=== PATIENT | female | born 1955 | race Two or more races ===

== ENCOUNTER 2019-02-22 18:07 | Inpatient (IN) | payer OTHER ==
[2019-02-22] MEDS ORDERED: ONDANSETRON 4 MG INJ IV (20:00)
[2019-02-22] MEDS ORDERED: NACL 0.9% 3 ML SYG IV (20:00)
[2019-02-22] MEDS ORDERED: ACETAMINOPHEN 325 MG TAB PO (20:00)
[2019-02-22] MEDS ORDERED: BISACODYL (EC) 5 MG TAB PO (20:00)
[2019-02-22] MEDS ORDERED: hydrALAzine 20 MG INJ IV (20:00)
[2019-02-22] MEDS ORDERED: DOCUSATE SODIUM 100 MG CAP PO (20:00)
[2019-02-22] MEDS ORDERED: morphine 2 MG INJ IV (20:00)
[2019-02-22 20:19] LABS: ADD MAN DIFF? NO
[2019-02-22 20:24] LABS: BASOPHIL # 0.1 10^3/ul (0.0-0.1); BASOPHILS % 0.8 % (0.0-2.0); EOSINOPHILS # 0.1 10^3/ul (0.0-0.5); EOSINOPHILS % 2.1 % (0.0-7.0); HEMATOCRIT 41.4 % (37.0-47.0); HEMOGLOBIN 13.9 g/dl (12.0-16.0); LYMPHOCYTES # 1.4 10^3/ul (0.8-2.9); LYMPHOCYTES % 20.5 % (15.0-51.0); MEAN CORPUSCULAR HGB CONC 33.6 g/dl (32.0-37.0); MEAN CORPUSCULAR VOLUME 95.2 fl (82.0-101.0); MEAN PLATELET VOLUME 11.1 fl (7.4-10.4); MONOCYTE # 0.7 10^3/ul (0.3-0.9); MONOCYTES % 11.3 % (0.0-11.0); NEUTROPHIL # 4.3 10^3/ul (1.6-7.5); NUCLEATED RED BLOOD CELLS% 0.3 /100WBC (0.0-0.0); PLATELET COUNT 130 10^3/UL (140-415); RED BLOOD COUNT 4.35 10^6/ul (4.20-5.40); RED CELL DISTRIBUTION WIDTH 14.1 % (11.5-14.5)
[2019-02-22 20:24] LABS: WHITE BLOOD COUNT 6.6 10^3/ul (4.8-10.8)
[2019-02-22 20:44] LABS: ALANINE AMINOTRANSFERASE 33 IU/L (13-69); ALBUMIN 3.8 g/dl (3.3-4.9); ALBUMIN/GLOBULIN RATIO 1.05; ALKALINE PHOSPHATASE 78 IU/L (42-121); ANION GAP 12 (5-13); ASPARTATE AMINO TRANSFERASE 41 IU/L (15-46); BILIRUBIN,INDIRECT 1.2 mg/dl (0-1.1); BILIRUBIN,TOTAL 1.2 mg/dl (0.2-1.3); BLOOD UREA NITROGEN 16 mg/dl (7-20); CALCIUM 9.7 mg/dl (8.4-10.2); CARBON DIOXIDE 22 mmol/L (21-31); CHLORIDE 106 mmol/L (97-110); CREATINE KINASE 66 IU/L (23-200); CREATININE 0.79 mg/dl (0.44-1.00); Estimated GFR > 60 mL/min (>60); GLUCOSE 140 mg/dl (70-220); SODIUM 140 mmol/L (135-144); TOTAL PROTEIN 7.4 g/dl (6.1-8.1)
[2019-02-22 20:44] LABS: ETHANOL < 10.0 mg/dl (0-0)
[2019-02-22 20:55] LABS: B-TYPE NATRIURETIC PEPTIDE 12500 PG/ML (0-125); CK INDEX 1.9; CK-MB 1.27 ng/ml (0.0-2.4); TROPONIN-I 0.029 ng/ml (0.000-0.120)
[2019-02-22] MEDS: LISINOPRIL 5 MG TAB PO (23:03)
[2019-02-22] MEDS: FUROSEMIDE 40 MG INJ IV (23:03)
[2019-02-22] MEDS: HEPARIN 5,000 UNIT/1 ML VIAL SC (23:16)
[2019-02-22 23:26] LABS: AMPHETAMINE/METHAMPHETAMINE Negative (NEGATIVE); BARBITURATES Negative (NEGATIVE); BENZODIAZEPINES Negative (NEGATIVE); CANNABINOIDS Negative (NEGATIVE); COCAINE Negative (NEGATIVE); OPIATES Negative (NEGATIVE)
[2019-02-22] MEDS ORDERED: ENALAPRILAT 1.25 MG INJ IV (23:30)
[2019-02-22] MEDS ORDERED: LORAZEPAM 2 MG INJ IV (23:30)
[2019-02-23] MEDS: ZOLPIDEM 5 MG TAB PO ×2 (00:22→22:34)
[2019-02-23 03:34] LABS: CREATINE KINASE 58 IU/L (23-200)
[2019-02-23 03:46] LABS: CK INDEX 2.2
[2019-02-23 04:03] LABS: CK-MB 1.28 ng/ml (0.0-2.4)
[2019-02-23 05:59] LABS: ADD MAN DIFF? NO
[2019-02-23] MEDS: CIPROFLOXACIN 250 MG TAB NGT ×2 (06:00→17:42)
[2019-02-23 06:09] LABS: BASOPHIL # 0.1 10^3/ul (0.0-0.1); BASOPHILS % 1.1 % (0.0-2.0); EOSINOPHILS # 0.1 10^3/ul (0.0-0.5); EOSINOPHILS % 1.6 % (0.0-7.0); HEMATOCRIT 37.4 % (37.0-47.0); HEMOGLOBIN 13.1 g/dl (12.0-16.0); LYMPHOCYTES # 1.4 10^3/ul (0.8-2.9); LYMPHOCYTES % 24.6 % (15.0-51.0); MEAN CORPUSCULAR HEMOGLOBIN 34.6 pg (29.0-33.0); MEAN CORPUSCULAR VOLUME 98.7 fl (82.0-101.0); MEAN PLATELET VOLUME 11.5 fl (7.4-10.4); MONOCYTE # 0.6 10^3/ul (0.3-0.9); NEUTROPHIL # 3.5 10^3/ul (1.6-7.5); NEUTROPHILS % 62.3 % (39.0-77.0); PLATELET COUNT 118 10^3/UL (140-415); RED BLOOD COUNT 3.79 10^6/ul (4.20-5.40); RED CELL DISTRIBUTION WIDTH 15.9 % (11.5-14.5)
[2019-02-23 06:09] LABS: WHITE BLOOD COUNT 5.6 10^3/ul (4.8-10.8)
[2019-02-23] MEDS: FUROSEMIDE 40 MG INJ IV ×2 (06:12→17:43)
[2019-02-23] MEDS: HEPARIN 5,000 UNIT/1 ML VIAL SC ×3 (06:21→21:08)
[2019-02-23 06:25] LABS: ALANINE AMINOTRANSFERASE 32 IU/L (13-69); ALBUMIN 3.4 g/dl (3.3-4.9); ALBUMIN/GLOBULIN RATIO 1.06; ALKALINE PHOSPHATASE 69 IU/L (42-121); ANION GAP 12 (5-13); ASPARTATE AMINO TRANSFERASE 35 IU/L (15-46); BILIRUBIN,INDIRECT 1.4 mg/dl (0-1.1); BILIRUBIN,TOTAL 1.4 mg/dl (0.2-1.3); BLOOD UREA NITROGEN 15 mg/dl (7-20); CALCIUM 9.1 mg/dl (8.4-10.2); CARBON DIOXIDE 25 mmol/L (21-31); CHLORIDE 106 mmol/L (97-110); CHOL/HDL RATIO 3.9 RATIO; CHOLESTEROL 126 mg/dl (100-200); CREATININE 0.74 mg/dl (0.44-1.00); Estimated GFR > 60 mL/min (>60); GLUCOSE 122 mg/dl (70-220); HDL CHOLESTEROL 32 mg/dl (35-98); LDL CHOLESTEROL,CALCULATED 80 mg/dl; MAGNESIUM 1.9 mg/dl (1.7-2.5); POTASSIUM 3.5 mmol/L (3.5-5.1); SODIUM 143 mmol/L (135-144); TOTAL PROTEIN 6.6 g/dl (6.1-8.1); TRIGLYCERIDES 72 mg/dl (0-149)
[2019-02-23 08:04] LABS: HEMOGLOBIN A1C 6.1 % (0-5.9)
[2019-02-23] MEDS: LISINOPRIL 5 MG TAB PO (09:19)
[2019-02-23] MEDS: POTASSIUM CHLORIDE (SR) 20 MEQ TAB PO (12:44)
[2019-02-23 19:14] LABS: CREATINE KINASE 60 IU/L (23-200)
[2019-02-23 19:24] LABS: CK INDEX 2.2; TROPONIN-I 0.016 ng/ml (0.000-0.120)
[2019-02-24 01:09] LABS: CREATINE KINASE 54 IU/L (23-200)
[2019-02-24 01:22] LABS: CK INDEX 2.4; TROPONIN-I 0.022 ng/ml (0.000-0.120)
[2019-02-24] MEDS: CIPROFLOXACIN 250 MG TAB NGT (05:38)
[2019-02-24] MEDS: FUROSEMIDE 40 MG INJ IV (05:38)
[2019-02-24] MEDS: HEPARIN 5,000 UNIT/1 ML VIAL SC ×2 (05:49→14:00)
[2019-02-24 06:33] LABS: CK-MB 1.48 ng/ml (0.0-2.4); TROPONIN-I 0.032 ng/ml (0.000-0.120)
[2019-02-24 06:36] LABS: CK INDEX 2.9; CREATINE KINASE 51 IU/L (23-200)
[2019-02-24 08:51] LABS: ADD MAN DIFF? NO
[2019-02-24 08:55] LABS: WHITE BLOOD COUNT 6.6 10^3/ul (4.8-10.8)
[2019-02-24 08:56] LABS: BASOPHILS % 0.6 % (0.0-2.0); EOSINOPHILS # 0.2 10^3/ul (0.0-0.5); EOSINOPHILS % 3.2 % (0.0-7.0); HEMATOCRIT 39.9 % (37.0-47.0); HEMOGLOBIN 13.6 g/dl (12.0-16.0); LYMPHOCYTES # 1.7 10^3/ul (0.8-2.9); LYMPHOCYTES % 25.2 % (15.0-51.0); MEAN CORPUSCULAR HEMOGLOBIN 32.9 pg (29.0-33.0); MEAN CORPUSCULAR HGB CONC 34.1 g/dl (32.0-37.0); MEAN CORPUSCULAR VOLUME 96.6 fl (82.0-101.0); MEAN PLATELET VOLUME 12.8 fl (7.4-10.4); MONOCYTE # 0.5 10^3/ul (0.3-0.9); MONOCYTES % 7.5 % (0.0-11.0); NEUTROPHIL # 4.2 10^3/ul (1.6-7.5); NEUTROPHILS % 63.2 % (39.0-77.0); PLATELET COUNT 128 10^3/UL (140-415); RED BLOOD COUNT 4.13 10^6/ul (4.20-5.40); RED CELL DISTRIBUTION WIDTH 14.4 % (11.5-14.5)
[2019-02-24] MEDS: LISINOPRIL 5 MG TAB PO (09:01)
[2019-02-24 09:06] LABS: ALANINE AMINOTRANSFERASE 30 IU/L (13-69); ALBUMIN 3.4 g/dl (3.3-4.9); ALBUMIN/GLOBULIN RATIO 1.09; ALKALINE PHOSPHATASE 74 IU/L (42-121); ANION GAP 12 (5-13); ASPARTATE AMINO TRANSFERASE 41 IU/L (15-46); BILIRUBIN,INDIRECT 1.1 mg/dl (0-1.1); BILIRUBIN,TOTAL 1.1 mg/dl (0.2-1.3); BLOOD UREA NITROGEN 19 mg/dl (7-20); CALCIUM 9.2 mg/dl (8.4-10.2); CARBON DIOXIDE 21 mmol/L (21-31); CHLORIDE 107 mmol/L (97-110); CREATININE 0.76 mg/dl (0.44-1.00); Estimated GFR > 60 mL/min (>60); GLUCOSE 128 mg/dl (70-220); MAGNESIUM 1.9 mg/dl (1.7-2.5); PHOSPHORUS 4.7 mg/dl (2.5-4.9); POTASSIUM 4.2 mmol/L (3.5-5.1); SODIUM 140 mmol/L (135-144); TOTAL PROTEIN 6.5 g/dl (6.1-8.1)
[2019-02-24] MEDS: IOHEXOL 350MG/ML 50 ML BTL (11:35)
[2019-02-24] MEDS: SOD CHLORIDE 0.9% 100 ML (11:35)
[2019-02-24] MEDS: IOHEXOL 100 ML (11:35)
[2019-02-24] MEDS ORDERED: ZOLPIDEM 5 MG TAB PO (21:00)
== END 2019-02-24 16:36 | disposition home or self-care (01) | DRG 292 ==
LOC: PP2 18:07 → 6WM 20:51
DX: I11.0 Hypertensive heart disease with heart failure (principal); N39.0 Urinary tract infection, site not specified; I50.22 Chronic systolic (congestive) heart failure; D69.6 Thrombocytopenia, unspecified; E80.6 Other disorders of bilirubin metabolism; Z59.0 Homelessness; E78.5 Hyperlipidemia, unspecified; M19.90 Unspecified osteoarthritis, unspecified site; I49.3 Ventricular premature depolarization
CPT/HCPCS: 71045; 76705; 80053; 80061; 80307; 82550; 82553; 83036; 83735; 83880; 84100; 84443; 84484; 85025; 87081; 93306; 93970